=== PATIENT | female | born 2000 | race African-American/Black ===

== ENCOUNTER 2019-09-19 16:10 | Emergency (ER) | payer OTHER ==
[~2019-09-19] VITALS: Ht 160 cm; Wt 52.2 kg
[~2019-09-19 16:10] MED LIST: AMOXICILLI250 MG/51 PO; CLARITIN10 MG PO; KEFLEX500 M1 PO
[2019-09-19 16:54] LABS: ABSOLUTE BASOPHILS 0.1 thou/uL (0.0-0.2); ABSOLUTE EOSINOPHILS 0.1 thou/uL (0.0-0.7); ABSOLUTE MONOCYTES 0.7 thou/uL (0.0-1.2); ABSOLUTE NEUTROPHILS 9.4 thou/uL (1.6-8.1); BASOPHILS 0.6 %; EOSINOPHILS 0.7 %; HEMATOCRIT 37.1 % (37.0-47.0); HEMOGLOBIN 12.2 gm/dL (12.0-15.0); LYMPHOCYTES 8.6 %; MCH 27.6 pg (26.0-34.0); MCHC 32.9 g/dL (28.0-37.0); MONOCYTES 6.1 %; NUCLEATED RBCS 0 /100WBC; PLATELET COUNT* 214 thou/uL (150-400); RBC 4.42 mil/uL (4.20-5.00); WBC 11.2 thou/uL (4.0-11.0)
[2019-09-19 16:54] LABS: URINE BILIRUBIN NEGATIVE (Negative); URINE BLOOD NEGATIVE (Negative); URINE CLARITY CLEAR; URINE COLOR YELLOW; URINE GLUCOSE-RANDOM NEGATIVE (Negative); URINE LEUKOCYTES-REFLEX NEGATIVE (Negative); URINE NITRITE-REFLEX NEGATIVE (Negative); URINE PROTEIN NEGATIVE (Negative); URINE SPECIFIC GRAVITY >= 1.030 (1.005-1.030); URINE UROBILINOGEN 0.2 E.U./dl (0.2-1.0)
[2019-09-19 16:56] LABS: URINE KETONES 3+ (Negative)
[2019-09-19 17:03] LABS: CALCIUM 8.1 mg/dL (8.5-10.1); CREATININE 0.9 mg/dL (0.6-1.3); POTASSIUM 4.1 mmol/L (3.5-5.1)
[2019-09-19 17:08] LABS: ALBUMIN 3.4 g/dL (3.4-5.0); TOTAL BILIRUBIN 0.3 mg/dL (<0.1-1.0); TOTAL PROTEIN 7.6 g/dL (6.4-8.2)
[2019-09-19] MEDS ORDERED: ONDANSETRON HCL4 M2 PO (19:50)
[2019-09-19] MEDS ORDERED: NORCO 5-325 TA1 EAC1 PO (19:50)
[2019-09-19] MEDS ORDERED: PREDNISONE 10 M10 MG PO (19:50)
[2019-09-19 20:22] VITALS: BP 116/62
== END 2019-09-19 20:30 | disposition home or self-care (01) ==
LOC: M.ERS 16:10
PROVIDERS: Nurse Practitioner Family
DX: K52.9 Noninfective gastroenteritis and colitis, unspecified (principal); J45.909 Unspecified asthma, uncomplicated

== ENCOUNTER 2019-10-15 13:05 | Emergency (ER) | payer OTHER ==
[~2019-10-15] VITALS: Ht 160 cm; Wt 47.6 kg
[~2019-10-15 13:05] MED LIST changes: +NORCO 5-325 TA1 EAC1 PO; +ONDANSETRON HCL4 M2 PO; +PREDNISONE 10 M10 MG PO
[2019-10-15 14:12] LABS: ABSOLUTE LYMPHOCYTES 0.8 thou/uL (0.8-5.3); ABSOLUTE MONOCYTES 0.2 thou/uL (0.0-1.2); ABSOLUTE NEUTROPHILS 2.3 thou/uL (1.6-8.1); BASOPHILS 0.8 %; EOSINOPHILS 0.2 %; HEMATOCRIT 38.4 % (37.0-47.0); HEMOGLOBIN 12.9 gm/dL (12.0-15.0); LYMPHOCYTES 24.4 %; MCH 28.5 pg (26.0-34.0); MCHC 33.5 g/dL (28.0-37.0); MCV 85.1 fL (80.0-100.0); MONOCYTES 4.6 %; MPV 9.6 fl. (7.2-11.1); NUCLEATED RBCS 0 /100WBC; PLATELET COUNT* 121 thou/uL (150-400); RBC 4.52 mil/uL (4.20-5.00); RDW-CV 16.2 % (10.5-14.5); WBC 3.3 thou/uL (4.0-11.0)
[2019-10-15 14:24] LABS: POTASSIUM 3.5 mmol/L (3.5-5.1)
[2019-10-15 14:29] LABS: ALBUMIN 3.2 g/dL (3.4-5.0); TOTAL BILIRUBIN 0.1 mg/dL (<0.1-1.0); TOTAL PROTEIN 7.4 g/dL (6.4-8.2)
[2019-10-15] MEDS ORDERED: ZPAK PO (15:11)
[2019-10-15] MEDS ORDERED: TESSALON PERLE100 MG PO (15:11)
[2019-10-15] MEDS ORDERED: PROMETHAZI6.25 MG/5 PO (15:11)
[2019-10-15] MEDS ORDERED: MEDROLDOSEPACK PO (15:11)
[2019-10-15] MEDS ORDERED: PROAIR HFA8.5 GM INH (15:11)
[2019-10-15 15:27] VITALS: BP 112/60
--- NOTE | 2019-10-15 16:43 | EKG ---
[place] [address] ELECTROCARDIOGRAM REPORT Name: LATRICIA WHITE Room: [facility]#: [id number] Admission: 10/15/19 Attend Phys: Discharge: 10/15/19 Date of : [birth year] Date of Service: 10/15/19 1356 Report #: [id number] THIS REPORT FOR: cc: Stephen Flowers MD, Charles F. 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
== END 2019-10-15 15:31 | disposition home or self-care (01) ==
LOC: M.ERS 13:05
PROVIDERS: Physician Assistant
DX: J11.1 Influenza due to unidentified influenza virus with other respiratory manifestations (principal); J20.9 Acute bronchitis, unspecified; J45.909 Unspecified asthma, uncomplicated